=== PATIENT | male | born 1945 | race Caucasian/White ===

== ENCOUNTER → 2017-04-04 | Outpatient (CLI) | payer MEDICARE, BC ==
[~2017-04-04] MED LIST: ALBU8.5H2 IH; AMLO2.5T PO; ASP81TEC PO; ATR20T PO; B12 PO; CATHETER FLUSH 10 ML SYR IV PRN; CRV25T PO; FLUT1DIS28 IH; IOHEXOL 350 MG/ML 100 ML (OMNIPAQUE 350) VIAL IV ONE; LOSA50TA6 PO; NS 250 ML (IVPB) BAG IV ONE; OMEG1CAP51 PO; RECEIVED CONTRAST (Hold Metformin) IV SCH; TIOT18CA IH; TRAV5DRO OP
--- NOTE | 2017-04-04 16:00 | Diagnostic Imaging Report ---
PROCEDURE: CT chest with contrast only. TECHNIQUE: Multiple contiguous axial images were obtained through the chest after administration of intravenous contrast. INDICATION: Abnormal chest x-ray. FINDINGS: In the posterior aspect of right lower lobe, there is an approximately 4.8 x 2.4 cm lobulated subpleural mass. There is slight surrounding atelectasis without definite pleural thickening or pleural-based lesion. Bullae or pleural blebs are noted in the apices of both lungs with mild subpleural bulla formation in the left lower lobe and mild centrilobular emphysema in the left upper lobe. Subcentimeter calcified nodule is also present within the posterior basilar aspect of the left upper lobe. There is no significant pleural or pericardial fluid. Occasional subcentimeter lymph nodes are seen in the mediastinum and pulmonary flora with [id number] atherosclerotic calcification of coronary arteries. Upper abdominal sections reveal fatty infiltration of the liver with areas of enhancement in the spleen, which could be due to hemangiomas. There are several gallstones noted. IMPRESSION: Abnormal density seen on recent chest radiograph corresponds to 4.8 x 2.4 cm lobulated mass. While this could potentially represent a rounded pneumonia, findings are suspicious for bronchogenic neoplasm. This could be further assessed with short-term followup CT if patient demonstrates symptoms of pneumonia. Otherwise, biopsy should be performed for assessment. Otherwise, there are granulomatous findings in the chest and upper abdomen with cholelithiasis and coronary artery disease present. Dictated by: Dictated on workstation # [id number]
== END ==
LOC: RAD 14:27
PROVIDERS: ATTEND Family Medicine
DX: K80.20 Calculus of gallbladder without cholecystitis without obstruction (principal); I25.10 Atherosclerotic heart disease of native coronary artery without angina pectoris; R91.8 Other nonspecific abnormal finding of lung field; J18.9 Pneumonia, unspecified organism
CPT/HCPCS: 71260

== ENCOUNTER → 2017-04-04 | Outpatient (CLI) | payer MEDICARE, BC ==
[~2017-04-04] MED LIST changes: -CATHETER FLUSH 10 ML SYR IV PRN; -IOHEXOL 350 MG/ML 100 ML (OMNIPAQUE 350) VIAL IV ONE; -NS 250 ML (IVPB) BAG IV ONE; -RECEIVED CONTRAST (Hold Metformin) IV SCH
--- NOTE | 2017-04-04 12:33 | Diagnostic Imaging Report ---
INDICATION: Cough and crackles. COMPARISON: 07/07/2014. FINDINGS: Two views of the chest are obtained. Heart size is normal. The pulmonary vessels appear unremarkable. There is no pneumothorax, mediastinal widening, or pleural fluid. On the lateral view, there is a new 3.5 cm mass-like opacity in the posterior inferior chest over the spine. A pleural-based mass is of some concern here. The lungs are otherwise clear. There are degenerative changes in the spine. IMPRESSION: There is a new pleural-based mass-like opacity in the posterior chest seen on the lateral view concerning for a developing mass. CT scan of the chest is recommended for further evaluation. Report was called to Jolly/information officer of Dr. Magallanes by ramses at 12:35 PM. Dictated by: Dictated on workstation # [id number]
== END ==
LOC: RAD 12:05
PROVIDERS: ATTEND Family Medicine
DX: R05 Cough (principal); R91.8 Other nonspecific abnormal finding of lung field; R09.89 Other specified symptoms and signs involving the circulatory and respiratory systems
CPT/HCPCS: 71046

== ENCOUNTER → 2017-04-22 | Outpatient (CLI) | payer MEDICARE, BC ==
[~2017-04-22] MED LIST changes: +CATHETER FLUSH 10 ML SYR IV PRN; +IOHEXOL 350 MG/ML 100 ML (OMNIPAQUE 350) VIAL IV ONE; +NS 100 ML (IVPB) BAG IV ONE
--- NOTE | 2017-04-22 15:46 | Diagnostic Imaging Report ---
PROCEDURE: CT chest with contrast only. TECHNIQUE: Multiple contiguous axial images were obtained through the chest after administration of intravenous contrast. INDICATION: Lung mass. FINDINGS: The recent CT chest exam performed on 04/04/2017 noted a 2.4 x 4.8 x 3.0 cm lobulated mass along the posterior aspect of the right lung base. It was not certain whether this finding was related to pneumonia or to a neoplastic mass. On this exam, the area in question is again identified and does measure slightly smaller than on the previous study. This lesion now measures 2.4 x 4.3 x 3.0 cm. Even though this mass has apparently decreased in size slightly since the prior exam, I am still concerned that it could be neoplastic in nature. If further imaging is desired, then PET/CT would be recommended. If a tissue diagnosis is sought, then a CT-guided biopsy could be performed. If the PET/CT exam is not performed and if there is no intervention at this time, then a short-term (4-6 week) followup CT chest exam should be obtained. The overall appearance of the chest is otherwise no different. No new abnormality has developed. The images through the upper abdomen again show cholelithiasis without evidence for acute cholecystitis. The cysts associated with the right kidney and the right lobe of the liver seen previously are again evident and no different. The bone windows show no sign of a fracture or of a destructive lesion. IMPRESSION: 1. The mass in the posterior aspect of the right lung base seen previously does measure slightly smaller than on the prior exam. Even so, this finding is worrisome for neoplasm. Recommendations as above. 2. These results were discussed with Dr. Nichelle Magallanes. Dictated by: Dictated on workstation # [id number]
== END ==
LOC: RAD 14:36
PROVIDERS: ATTEND Nurse Practitioner Family
DX: R91.8 Other nonspecific abnormal finding of lung field (principal)
CPT/HCPCS: 71260

== ENCOUNTER → 2017-06-06 | Outpatient (CLI) | payer MEDICARE, BC ==
[~2017-06-06] MED LIST changes: -CATHETER FLUSH 10 ML SYR IV PRN; -NS 100 ML (IVPB) BAG IV ONE; +NS 250 ML (IVPB) BAG IV ONE
--- NOTE | 2017-06-06 10:09 | Diagnostic Imaging Report ---
PROCEDURE: CT chest with contrast only. TECHNIQUE: Multiple contiguous axial images were obtained through the chest after administration of intravenous contrast. INDICATION: Pneumonia and six-month followup of chest nodule. COMPARISON: Prior CT chest from 04/22/2017. FINDINGS: No axillary lymphadenopathy is identified. No definite mediastinal or hilar lymphadenopathy is seen apart from some prominence of a subcarinal lymph node measuring approximately 9 mm in short axis. There is also a small node adjacent to the left main pulmonary artery with a short axis measurement of 6 mm. No significant pericardial fluid is seen. No pleural effusion is identified on the left. Parenchymal evaluation again demonstrates bullous emphysematous changes in both lungs. There is a lobulated mass/consolidation in the posterior right lower lobe which appears bigger on today's study at 4.8 cm transverse x 2.7 cm AP compared with 4.3 x 2.4 cm. There may be trace pleural fluid in the right base as well. No new parenchymal mass is seen. The upper abdomen shows multiple stones within the gallbladder. A right lobe liver cyst as well as a right renal cyst is again noted. IMPRESSION: Mild increase in the size of the soft tissue masslike density in the posterior right lower lobe when compared with the CT study from 04/22/2017. Again, this is concerning for neoplasm. A PET/CT or needle biopsy would be useful for further evaluation. Dictated by: Dictated on workstation # [id number]
== END ==
LOC: RAD 08:07
PROVIDERS: ATTEND Family Medicine
DX: R91.8 Other nonspecific abnormal finding of lung field (principal); J18.9 Pneumonia, unspecified organism
CPT/HCPCS: 71260

== ENCOUNTER → 2017-06-24 | Outpatient (CLI) | payer MEDICARE, BC ==
[~2017-06-24] MED LIST changes: -IOHEXOL 350 MG/ML 100 ML (OMNIPAQUE 350) VIAL IV ONE; -NS 250 ML (IVPB) BAG IV ONE; +RT-ALBUTEROL SULF 2.5 MG/3 ML PRE-MIX VIAL INH ONE
== END ==
LOC: RT 14:12
PROVIDERS: ATTEND Nurse Practitioner Family
DX: J30.9 Allergic rhinitis, unspecified (principal); J44.9 Chronic obstructive pulmonary disease, unspecified; R06.00 Dyspnea, unspecified
CPT/HCPCS: 94060; 94726; 94729

== ENCOUNTER → 2017-07-19 | Outpatient (CLI) | payer MEDICARE, BC ==
[~2017-07-19] MED LIST changes: -RT-ALBUTEROL SULF 2.5 MG/3 ML PRE-MIX VIAL INH ONE
[2017-07-19 10:54] LABS: HEMOGLOBIN 14.5 G/DL (13.3-17.7); MEAN PLATELET VOLUME 10.5 FL (7.4-10.4); RED BLOOD COUNT 4.36 10^6/uL (4.35-5.85); RED CELL DISTRIBUTION WIDTH 14.1 % (10.0-14.5); WHITE BLOOD COUNT 9.5 10^3/uL (4.3-11.0)
[2017-07-19 11:13] LABS: ALBUMIN 3.8 GM/DL (3.2-4.5); BILIRUBIN,TOTAL 0.7 MG/DL (0.1-1.0); CALCIUM 9.6 MG/DL (8.5-10.1); CREATININE SERUM 1.29 MG/DL (0.60-1.30); TOTAL PROTEIN 6.9 GM/DL (6.4-8.2)
[2017-07-19 11:46] LABS: BILIRUBIN,URINE NEGATIVE (NEGATIVE); CLARITY,URINE CLEAR; COLOR,URINE YELLOW; GLUCOSE, URINE (UA) 2+ (NEGATIVE); KETONES,URINE NEGATIVE (NEGATIVE); LEUKOCYTE ESTERASE ,URINE NEGATIVE (NEGATIVE); NITRITE,URINE NEGATIVE (NEGATIVE); PH,URINE 5 (5-9); PROTEIN,URINE NEGATIVE (NEGATIVE); UROBILINOGEN,URINE NORMAL (NORMAL)
[2017-07-19 11:52] LABS: BACTERIA,URINE NEGATIVE /HPF
--- NOTE | 2017-07-19 13:23 | Diagnostic Imaging Report ---
EXAMINATION: PA and lateral chest at 11:00 a.m. INDICATION: Preop lung surgery. FINDINGS: The heart size is within normal limits and stable when compared to 04/04/2017. The mass along the posterior aspect of the right lung base seen on the previous CT chest exam of 06/06/2017 is again visualized and does not seem to have changed significantly. The lungs are otherwise clear. There are emphysematous changes involving both upper lobes, but there is no sign of failure, pneumonia, or pleural effusion. The mediastinum is not widened. The osseous structures are intact. The two gallstones within the gallbladder seen previously are again evident and no different. IMPRESSION: 1. There is no evidence for an acute cardiopulmonary abnormality. 2. The mass in the right lung base seen previously is again evident and does not appear to have changed significantly. This mass should be considered neoplastic until proven otherwise. 3. Cholelithiasis. Dictated by: Dictated on workstation # [id number]
== END ==
LOC: CARD 10:02
PROVIDERS: ATTEND Thoracic Surgery (Cardiothoracic Vascular Surgery)
DX: Z01.810 Encounter for preprocedural cardiovascular examination (principal); Z01.811 Encounter for preprocedural respiratory examination; Z01.812 Encounter for preprocedural laboratory examination; Z01.818 Encounter for other preprocedural examination; C34.90 Malignant neoplasm of unspecified part of unspecified bronchus or lung; K80.20 Calculus of gallbladder without cholecystitis without obstruction
CPT/HCPCS: 36415; 71046; 80053; 81000; 85027; 93005

== ENCOUNTER → 2017-08-27 | Outpatient (CLI) | payer MEDICARE, BC ==
[2017-08-27 15:47] LABS: ABG BASE EXCESS -3.1 MMOL/L (-2.5-2.5); ABG OXYGEN SATURATION 96 % (94-100); ABG PCO2 34 MMHG (35-45); ABG PO2 74 MMHG (79-93); ABG TCO2 22.1 MMOL/L (21.0-31.0)
[2017-08-27 15:53] LABS: INSPIRED O2 ROOM AIR; PATIENT TEMP 97.6; VENTILATOR NO
== END ==
LOC: RT 15:03
PROVIDERS: ATTEND Nurse Practitioner Family
DX: J44.9 Chronic obstructive pulmonary disease, unspecified (principal)
CPT/HCPCS: 82805

== ENCOUNTER → 2017-09-04 | Outpatient (CLI) | payer MEDICARE, BC ==
[~2017-09-04] MED LIST changes: +RT-ALBUTEROL SULF 2.5 MG/3 ML PRE-MIX VIAL INH ONE
== END ==
LOC: RT 11:29
PROVIDERS: ATTEND Nurse Practitioner Family
DX: J44.9 Chronic obstructive pulmonary disease, unspecified (principal); R06.00 Dyspnea, unspecified
CPT/HCPCS: 36600; 82805; 94060; 94726; 94729

== ENCOUNTER 2018-01-14 14:00 | Outpatient (CLI) | payer MEDICARE, BC ==
[~2018-01-14 14:00] MED LIST changes: -RT-ALBUTEROL SULF 2.5 MG/3 ML PRE-MIX VIAL INH ONE
== END 2018-01-14 14:30 | disposition home or self-care (01) ==
LOC: SLEEP 14:00
PROVIDERS: ATTEND Nurse Practitioner Family
DX: G47.10 Hypersomnia, unspecified (principal); C80.1 Malignant (primary) neoplasm, unspecified; J30.9 Allergic rhinitis, unspecified; J44.9 Chronic obstructive pulmonary disease, unspecified; R06.00 Dyspnea, unspecified

== ENCOUNTER 2018-03-03 09:12 | Outpatient (RCR) | payer MEDICARE, BC ==
--- NOTE | 2018-03-03 09:55 | Pulmonary Rehab Eval/Txmt Plan ---
Pulmonary Rehab Initial Eval Information Paper Evaluation Completed: Yes Date: Mar 03, 2018 Therapist: ESTEFANI ROA Diagnosis: J44.9 COPD Pulmonary Rehab Treatment Plan Treatment P Treatment Periord: Initial Diagnosis Diagnosis: J44.9 COPD Date: Mar 03, 2018 Barriers to Learning Barriers: None Assessment/Problems Exercise: Deconditioning, No Regular Exercise, Sedentary Type: AEROBIC Frequency: 2 X'S PER WEEK Duration: 1 HR CLASS; EXERCISE PER PT'S TOLERANCE Barriers to Exercise: NONE Initial MET Level: 2 Aerobic Exercise/Goals Freq: time per week minus MO: 2 MET Level=: 2 Type: Arm Ergometry, Bike, Scifi/Nustep, Treadmill PHIL WATTS DO Mar 03, 2018 09:55
[2018-04-01 12:45] VITALS: BP 130/50
[2018-04-01 13:35] VITALS: BP 119/59
[2018-04-03 13:00] VITALS: BP 140/60
[2018-04-03 14:00] VITALS: BP 140/60
[2018-04-08 13:00] VITALS: BP 130/70
[2018-04-08 14:00] VITALS: BP 140/60
[2018-04-10 12:52] VITALS: BP 112/59
[2018-04-10 13:42] VITALS: BP 120/60
[2018-04-15 13:00] VITALS: BP 128/50
[2018-04-15 14:00] VITALS: BP 120/50
[2018-04-17 12:45] VITALS: BP 130/60
[2018-04-17 13:58] VITALS: BP 120/50
[2018-04-22 13:40] VITALS: BP 120/60
[2018-04-22 13:50] VITALS: BP 110/50
[2018-04-29 12:50] VITALS: BP 130/50
[2018-04-29 13:58] VITALS: BP 122/68
[2018-05-01 13:00] VITALS: BP 110/50
[2018-05-01 14:00] VITALS: BP 112/58
[2018-05-06 12:50] VITALS: BP 124/60
[2018-05-06 13:55] VITALS: BP 120/60
[2018-05-08 13:00] VITALS: BP 115/60
[2018-05-08 14:05] VITALS: BP 108/72
[2018-05-13 13:00] VITALS: BP 130/60
[2018-05-13 14:00] VITALS: BP 100/50
[2018-05-15 13:00] VITALS: BP 123/60
[2018-05-15 13:55] VITALS: BP 115/68
[2018-05-22 13:00] VITALS: BP 130/60
[2018-05-22 14:00] VITALS: BP 138/63
[2018-05-27 13:10] VITALS: BP 120/60
[2018-05-27 14:00] VITALS: BP 120/60
[2018-05-29 13:00] VITALS: BP 110/50
[2018-05-29 14:00] VITALS: BP 112/60
[2018-06-03 13:00] VITALS: BP 115/60
[2018-06-03 14:00] VITALS: BP 115/60
== END 2018-06-01 | disposition home or self-care (01) ==
LOC: PULM 09:12
PROVIDERS: ATTEND Nurse Practitioner Family
DX: R06.00 Dyspnea, unspecified (principal); J44.9 Chronic obstructive pulmonary disease, unspecified; J30.9 Allergic rhinitis, unspecified; G47.10 Hypersomnia, unspecified
CPT/HCPCS: 99211

== ENCOUNTER → 2020-06-28 | Outpatient (CLI) | payer MEDICARE, BC ==
[~2020-06-28] VITALS: Ht 165 cm; Wt 75.0 kg
[~2020-06-28] MED LIST changes: +ATOR40TA PO; +CHLO25TA22 PO; +CHOL500049 PO; +DULO20CA19 PO; +DUTA0.5C36 PO; +LORA10CA PO; +MONT10TA21 PO; +TMSL.4C PO; +[UNRECOGNIZED DRUG - OTHER] PO
== END | disposition home or self-care (01) ==
LOC: PREOP 05:38
PROVIDERS: ATTEND Surgery
DX: Z01.818 Encounter for other preprocedural examination (principal)

== ENCOUNTER 2020-07-05 07:22 | Day surgery (SDC) | payer MEDICARE, BC ==
[~2020-07-05] VITALS: Ht 165 cm; Wt 75.0 kg
[2020-07-05] MEDS ORDERED: LACTATED RINGERS 1,000 ML IV ONE (07:30)
[2020-07-05] MEDS ORDERED: PROPOFOL INJECTION 50 ML IV ONE ×2 (07:38→08:50)
[2020-07-05] MEDS ORDERED: MIDAZOLAM 2 MG/2 ML (VERSED) VIAL ONE (07:39)
[2020-07-05 07:40] VITALS: BP 144/85
[2020-07-05] MEDS ORDERED: LACTATED RINGERS 1,000 ML IV STA (07:45)
[2020-07-05 09:10] VITALS: BP 141/65
[2020-07-05 09:15] VITALS: BP 153/62
--- NOTE | 2020-07-05 09:16 | Progress Note-Post Operative ---
Post-Operative Progess Note Surgeon (s)/Bird Sitter (s) Surgeon FEDERICA MORRELL DO Bird Sitter: na Pre-Operative Diagnosis family history of colon cancer, hx of polyps Post-Operative Diagnosis colon polyps, diverticulosis Procedure & Operative Findings Date of Procedure 07/05/20 Procedure Performed/Findings colonoscopy c hot biopsy polypectomy x 7 Anesthesia Type per ware tester Estimated Blood Loss Estimated blood loss (mL): none Specimens/Packing Specimens Removed polyps FEDERICA MORRELL DO July 05, 2020 09:16
--- NOTE | 2020-07-05 09:18 | Discharge Inst-Simple/Standard ---
Discharge Inst-Standard Discharge Medications New, Converted or Re-Newed RX: RX on Chart Patient Instructions/Follow Up Plan of Care/Instructions/FU: 2 week [place] Activity as Tolerated: Yes Discharge Diet: Regular Diet (high fiber) FEDERICA MORRELL DO July 05, 2020 09:18
[2020-07-05 09:20] VITALS: BP 113/57
[2020-07-05 09:50] VITALS: BP 159/84
[2020-07-05 10:05] VITALS: BP 159/84
--- NOTE | 2020-07-05 12:17 | OPERATIVE REPORT ---
DATE OF SERVICE: 07/05/2020 PREOPERATIVE DIAGNOSES: Family history of colon cancer, history of polyps. POSTOPERATIVE DIAGNOSES: Colon polyps, diverticulosis. PROCEDURE: Colonoscopy with hot biopsy polypectomy x7. SURGEON: Federica Palumbo DO ANESTHESIA: Per CORE STRIPPER. ESTIMATED BLOOD LOSS: None. COMPLICATIONS: None INDICATIONS: The patient is a 74-year-old male with history of colon polyps, family history of colon cancer. He understands risks and benefits of procedure and wishes to proceed. Consent was signed in the chart. DESCRIPTION OF PROCEDURE: The patient was taken to the endoscopy suite, placed in left lateral recumbent position. Timeout was performed. Digital rectal exam was performed. There were no palpable polyps, masses or ulcerations. Scope was inserted in the rectum, advanced all the way to cecum with minimal difficulty. Prep was adequate. Scope was then slowly retracted back. There were no polyps, masses or ulcerations within the cecum. In the ascending colon, 2 polyps were present, which hot biopsy polypectomy was performed. Scope was then continuously retracted back. No polyps, masses or ulcerations within the transverse colon. In the descending colon, there was another three polyps, which hot biopsy polypectomy was performed. Scope was then continuously retracted back into the sigmoid where another polyp was present, which hot biopsy polypectomy was performed. There were also diverticulosis of the sigmoid colon. Once in the rectum, scope was retroflexed noting no other pathology. Scope was returned to its normal position, slowly withdrawn until completely removed. The patient tolerated procedure well without any complications, taken to recovery room in stable condition. RECOMMENDATIONS: The patient will follow up in 2 weeks to discuss pathology results. The patient will need high fiber diet due to diverticulosis. We would recommend repeat colonoscopy in three years for reevaluation. Any problems before that, will do earlier. Job ID: [id number] DocumentID: [id number] Dictated Date: 07/05/2020 09:22:48 Computer Field Technician Date: 07/05/2020 12:17:29 Dictated By: FEDERICA PALUMBO DO
--- NOTE | 2020-07-05 13:58 | Anesthesia-General Post-Op ---
MAC Patient Condition Mental Status/LOC: Same as Preop Cardiovascular: Satisfactory Nausea/Vomiting: Absent Respiratory: Satisfactory Pain: Controlled Complications: Absent Post Op Complications Complications None Follow Up Care/Instructions Patient Instructions None needed. Anesthesiology Discharge Order Discharge Order Patient is doing well, no complaints, stable vital signs, no apparent adverse anesthesia problems. No complications reported per nursing. JOHN VERDE YEAST PUSHER July 05, 2020 13:58
== END 2020-07-05 10:05 | disposition home or self-care (01) ==
LOC: ENDO 07:22
PROVIDERS: ATTEND Surgery
DX: D12.2 Benign neoplasm of ascending colon (principal); D12.4 Benign neoplasm of descending colon; D12.5 Benign neoplasm of sigmoid colon; K57.30 Diverticulosis of large intestine without perforation or abscess without bleeding; E78.5 Hyperlipidemia, unspecified; G47.10 Hypersomnia, unspecified; I10 Essential (primary) hypertension; J44.9 Chronic obstructive pulmonary disease, unspecified; Z79.02 Long term (current) use of antithrombotics/antiplatelets; Z79.82 Long term (current) use of aspirin; Z79.51 Long term (current) use of inhaled steroids; Z87.891 Personal history of nicotine dependence; Z80.0 Family history of malignant neoplasm of digestive organs
CPT/HCPCS: 88305